=== PATIENT | male | born 1990 | race Caucasian/White ===

== ENCOUNTER 2022-03-21 00:26 | Emergency (ER) | payer OTHER ==
[~2022-03-21] VITALS: Ht 188 cm; Wt 104.3 kg
[2022-03-21 00:30] VITALS: BP 141/83
--- NOTE | 2022-03-21 00:40 | NUR ---
Dr. Gutiérrez examining patient at [facility].
--- NOTE | 2022-03-21 00:41 | NUR ---
Patient taken to chair B
[2022-03-21] MEDS ORDERED: NALO4SPR NS (01:47)
[2022-03-21] MEDS ORDERED: ONDANSETRON 4 MG/2 ML VIAL IM ONE (02:00)
[2022-03-21] MEDS ORDERED: ONDANSETRON 4 MG/2 ML VIAL IVP ONE (02:05)
[2022-03-21 04:25] VITALS: BP 141/83
--- NOTE | 2022-03-21 04:29 | NUR ---
Patient discharged with v/s stable. Written and verbal after care instructions given and explained. Patient alert, oriented and verbalized understanding of instructions. Ambulatory with steady gait. All questions addressed prior to discharge. ID band removed. Patient advised to follow up with PMD. Rx of NARCAN given. Patient educated on indication of medication including possible reaction and side effects. Opportunity to ask questions provided and answered.
== END 2022-03-21 04:22 | disposition home or self-care (01) ==
LOC: MED 00:26
DX: F10.129 Alcohol abuse with intoxication, unspecified (principal); T40.601A Poisoning by unspecified narcotics, accidental (unintentional), initial encounter; Y90.9 Presence of alcohol in blood, level not specified; Y92.89 Other specified places as the place of occurrence of the external cause
CPT/HCPCS: 96372; 99283; J2405